=== PATIENT | male | born 1965 | race Caucasian/White ===

== ENCOUNTER 2020-12-27 07:29 | Emergency (ER) | payer OTHER ==
[~2020-12-27] VITALS: Ht 165.1 cm; Wt 127.0 kg
[2020-12-27] MEDS ORDERED: JANUVIA25 MG (08:08)
[2020-12-27] MEDS ORDERED: CARDIZEM CD240 MG (08:08)
== END 2020-12-27 13:35 | disposition home or self-care (01) ==
LOC: ER 07:29
DX: K52.9 Noninfective gastroenteritis and colitis, unspecified (principal); N18.9 Chronic kidney disease, unspecified; Z11.52 Encounter for screening for COVID-19

== ENCOUNTER 2024-06-06 06:50 | Day surgery (SDC) | payer OTHER ==
[2024-06-05 15:16] LABS: HEMATOCRIT 30.9 % (39.0-48.0); HEMOGLOBIN 10.1 g/dL (13-16.00); MEAN CELL VOLUME 94.2 fL (80.0-100.00); MEAN CORPUSCULAR HEMOGLOBIN 30.9 pg (27.00-32.0); MEAN CORPUSCULAR HGB CONC 32.8 g/dl (32.0-36.0); PLATELET COUNT 246 K/uL (150-450); RED BLOOD COUNT 3.28 M/uL (4.00-6.00); RED CELL DISTRIBUTION WIDTH 19.3 % (11.5-14.5)
[2024-06-05 15:28] LABS: INR 1.06; PARTIAL THROMBOPLASTIN TIME 29.1 SECONDS (22.0-34.0); PROTHROMBIN TIME 11.5 SECONDS (9.0-11.5)
[2024-06-05 16:04] LABS: ALBUMIN 3.7 gm/dL (3.4-5.0); BILIRUBIN TOTAL 0.51 mg/dL (0.3-1.2); CALCIUM 9.8 mg/dL (8.5-10.1); GFR 5.53; GLOBULINA 2.8 G/DL (2.4-3.5); POTASSIUM 3.6 mEq/L (3.5-5.1); TOTAL PROTEIN 6.5 gm/dL (6.4-8.2)
[2024-06-05 16:17] LABS: CREATININE SERUM 9.74 mg/dL (0.70-1.30)
[~2024-06-06 06:50] MED LIST: CARDIZEM CD240 MG; JANUVIA25 MG
== END 2024-06-06 11:15 | disposition home or self-care (01) ==
LOC: CIR.AMB 06:50 → AMB-ENDOS 09:15 → CIR.AMB 11:15 → AMB-ENDOS 13:45
PROVIDERS: ATTEND Internal Medicine
DX: D12.2 Benign neoplasm of ascending colon (principal); D12.4 Benign neoplasm of descending colon; D12.5 Benign neoplasm of sigmoid colon; R19.4 Change in bowel habit; E11.9 Type 2 diabetes mellitus without complications; E78.5 Hyperlipidemia, unspecified; F41.9 Anxiety disorder, unspecified; Z99.2 Dependence on renal dialysis

== ENCOUNTER 2024-08-21 07:01 | Day surgery (SDC) | payer OTHER ==
[2024-08-19 14:13] LABS: HEMOGLOBIN 9.6 g/dL (13-16.00); MEAN CELL VOLUME 100.8 fL (80.0-100.00); MEAN CORPUSCULAR HEMOGLOBIN 33.2 pg (27.00-32.0); MEAN CORPUSCULAR HGB CONC 32.9 g/dl (32.0-36.0); PLATELET COUNT 188 K/uL (150-450); RED BLOOD COUNT 2.88 M/uL (4.00-6.00); RED CELL DISTRIBUTION WIDTH 20.4 % (11.5-14.5)
[2024-08-19 14:36] LABS: INR 1.05; PARTIAL THROMBOPLASTIN TIME 28.1 SECONDS (22.0-34.0); PROTHROMBIN TIME 11.4 SECONDS (9.0-11.5)
[2024-08-19 15:12] LABS: ALBUMIN 3.5 gm/dL (3.4-5.0); BILIRUBIN TOTAL 0.42 mg/dL (0.3-1.2); CALCIUM 8.7 mg/dL (8.5-10.1); GFR 5.07; GLOBULINA 2.8 G/DL (2.4-3.5); POTASSIUM 3.3 mEq/L (3.5-5.1); TOTAL PROTEIN 6.3 gm/dL (6.4-8.2)
[2024-08-19 15:40] LABS: CREATININE SERUM 10.5 mg/dL (0.70-1.30)
[~2024-08-21 07:01] MED LIST changes: +CLONAZEPAM0.5 M1 PO; +DOXEPIN HCL10 MG PO; +FOSRENOL1000 MG PO; +LEXAPRO5 MG PO; +LIPITOR40 MG PO; +TAMS0.4C PO; +TRULICITY1.5 MG/0.5
== END 2024-08-21 13:15 | disposition home or self-care (01) ==
LOC: CIR.AMB 07:01
PROVIDERS: ATTEND Internal Medicine
DX: K52.81 Eosinophilic gastritis or gastroenteritis (principal); K31.7 Polyp of stomach and duodenum; Z91.040 Latex allergy status